=== PATIENT | female | born 1955 | race Caucasian/White ===

== ENCOUNTER → 2016-11-03 | Outpatient (CLI) | payer BC, MEDICARE ==
[~2016-11-03] MED LIST: ASPI81CH32 PO; ATEN50TA2 PO; FERR325T3 PO; FURO40TA2 PO; HYDR-4266 PO; HYDR25TAB PO; ISOVUE-370 76% 100ML VIAL (Q9967) As Ordered ONE; PANT40TA2 PO; PRED20TA PO; TRAZ50TA4 PO; tylenol PO
--- NOTE | 2016-11-03 10:53 | REP ---
CT study of the abdomen without and with IV contrast: Without oral contrast: Three-phase study with delayed images. History: Renal cyst. Comparison renal sonography is from September 26, 2015. Comparison CT images are from [facility] December 14, 2006. The patient has a history of renal failure on dialysis. CT contrast dose: 100 ml of Isovue [address] findings: Lung bases are clear. Mitral annular calcification is seen. The patient is status post gastric bypass surgery. There are intra-abdominal sutures in association with this. Vascular calcification is seen in a normal caliber aorta. There are two calcific foci in the left kidney compatible with tiny intrarenal calculi versus distal vascular calcification. There is a 1.9 cm low density lesion in the central renal sinus fat of the lower pole of the left kidney consistent with a peripelvic cyst. Post contrast sequences show that this does not enhance. It is visible on the 2006 prior study and is felt to be a benign parapelvic cyst. No other cyst or mass is seen in either kidney. The kidneys enhance symmetrically and appear morphologically intact. The left kidney measures 9.9 cm in length and the right kidney measures 10.0 cm in length. Singular nonstenotic renal arteries are seen both of which branch promptly. No adrenal mass lesion is seen. No pancreatic abnormality is observed. There is a descending duodenal diverticulum. No focal hepatic or splenic lesion is seen. Delayed images show no filling defect in the collecting system on either side. There is no evidence of hydronephrosis. Impression: 1.9 cm parapelvic cyst lower pole left kidney. Two tiny 1 mm intrarenal calculi in the left kidney. No hydronephrosis seen. Vascular calcification noted. The patient status post gastric bypass surgery. Signed by Yohan Marcos MD 11/03/2016 06:33 P
== END ==
LOC: M RAD 09:02
PROVIDERS: ATTEND Nurse Practitioner Women's Health
DX: N28.1 Cyst of kidney, acquired (principal); N20.0 Calculus of kidney; Z98.84 Bariatric surgery status
CPT/HCPCS: 74170; Q9967

== ENCOUNTER 2017-04-29 15:29 | Emergency (ER) | payer MEDICARE, MEDICAID ==
[~2017-04-29] VITALS: Ht 167.6 cm; Wt 60.8 kg
[~2017-04-29 15:29] MED LIST changes: -CIPR-249 PO; -LOSA50TA20 PO; -RENATAB5 PO; -RENV2TAB PO; -VITA200016 PO
[2017-04-29] MEDS ORDERED: VITA200016 PO (15:42)
[2017-04-29] MEDS ORDERED: RENV2TAB PO (15:42)
[2017-04-29] MEDS ORDERED: RENATAB5 PO (15:42)
[2017-04-29] MEDS ORDERED: LOSA50TA20 PO (15:42)
[2017-04-29] MEDS ORDERED: ACETAMINOPHEN 325 MG TAB PO ONE (16:30)
[2017-04-29 16:55] LABS: MICROSCOPIC INDICATED? MAN YES (NO)
[2017-04-29 16:58] LABS: BACTERIA, URINE LARGE AMOUNT; HYALINE CAST, URINE NONE SEEN /lpf (0-1); MICROSCOPIC EXAM PERFORMED; RBC, URINE TNTC /hpf (0-3); SQUAMOUS EPITHELIAL CELL URINE SMALL AMOUNT /hpf (SMALL AMT); WBC, URINE 15-20 /hpf (0-3)
[2017-04-29 17:06] LABS: BASO # 0.1 K/mm3 (0.0-0.2); BASO % 0.9 % (0.0-1.0); EOS # 0.1 K/mm3 (0.0-0.50); LARGE UNSTAINED CELL # 0.2 K/mm3 (0.0-0.4); LARGE UNSTAINED CELL % 3.3 % (0.0-4.0); LYMPH # 0.8 K/mm3 (1.5-4.5); LYMPH % 13.2 % (24.0-44.0); MEAN CORPUSCULAR HEMOGLOBIN 31.8 pg (27.0-33.0); MEAN CORPUSCULAR HGB CONC 32.6 g/dl (32.0-36.5); MEAN CORPUSCULAR VOLUME 97.6 fl (80.0-96.0); MONO # 0.5 K/mm3 (0.0-0.8); NEUTROPHILS # 4.4 K/mm3 (1.8-7.7); NEUTROPHILS % 73.6 % (36.0-66.0); PLATELET COUNT, AUTOMATED 344 k/mm3 (150-450); RED CELL DISTRIBUTION WIDTH 14.2 % (11.5-14.5)
[2017-04-29 17:25] LABS: ALBUMIN 3.8 GM/DL (3.2-5.2); ALBUMIN/GLOBULIN RATIO 1.06 (1.00-1.93); BILIRUBIN,DIRECT 0.1 MG/DL (0.0-0.2); BILIRUBIN,TOTAL 0.3 MG/DL (0.2-1.0); CALCIUM LEVEL 8.7 MG/DL (8.8-10.2); CREATININE FOR GFR 4.52 MG/DL (0.55-1.02); GLOMERULAR FILTRATION RATE 10.5 (>45); TOTAL PROTEIN 7.4 GM/DL (6.4-8.2)
[2017-04-29] MEDS ORDERED: cefTRIAXone SOD 2 GM in D5W MINI-BAG PLUS 50 ML IV ONE (17:30)
[2017-04-29 17:33] LABS: POTASSIUM SERUM 2.8 MEQ/L (3.5-5.1)
[2017-04-29] MEDS ORDERED: CIPR-249 PO (18:06)
[2017-04-29] MEDS ORDERED: CIPROFLOXACIN 500 MG TAB PO ONE (18:15)
[2017-04-29 18:21] VITALS: BP 100/88
== END 2017-04-29 18:23 | disposition home or self-care (01) ==
LOC: M ED 15:29
DX: N39.0 Urinary tract infection, site not specified (principal); R50.9 Fever, unspecified; I25.10 Atherosclerotic heart disease of native coronary artery without angina pectoris; N18.9 Chronic kidney disease, unspecified; K21.9 Gastro-esophageal reflux disease without esophagitis; I10 Essential (primary) hypertension; Z95.5 Presence of coronary angioplasty implant and graft; Z98.84 Bariatric surgery status; Z79.82 Long term (current) use of aspirin; Z79.899 Other long term (current) drug therapy
CPT/HCPCS: 36415; 80048; 80076; 81000; 83605; 85025; 87040; 87088; 87186; 96365; 99284; J0696

== ENCOUNTER → 2017-04-29 | Outpatient (REF) | payer MEDICARE, BC ==
[~2017-04-29] MED LIST changes: +CIPR-249 PO; +HYDR-3910 PO; -HYDR-4266 PO; -ISOVUE-370 76% 100ML VIAL (Q9967) As Ordered ONE; +LOSA50TA20 PO; +RENATAB5 PO; +RENV2TAB PO; +TRAZ50TA11 PO; -TRAZ50TA4 PO; +VITA200016 PO
== END ==
LOC: M LAB REF 16:09
PROVIDERS: ATTEND Physician Assistant
DX: R30.0 Dysuria (principal)

== ENCOUNTER 2017-07-08 21:13 | Emergency (ER) | payer OTHER, MEDICARE ==
[~2017-07-08] VITALS: Ht 167.6 cm; Wt 63.6 kg
[~2017-07-08 21:13] MED LIST changes: +CIPR-249 PO; +LOSA50TA20 PO; +RENATAB5 PO; +RENV2TAB PO; +VITA200016 PO
[2017-07-08] MEDS ORDERED: ACETAMINOPHEN TAB 650MG DOSE (2X325MG) PO ONE (21:45)
[2017-07-08 23:10] VITALS: BP 124/58
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
--- NOTE | 2017-07-10 10:21 | ED PDOC ---
Post-Departure Follow-Up radiology report faxed to Padmini Currie MD Jul 10, 2017 10:21
== END 2017-07-08 23:18 | disposition home or self-care (01) ==
LOC: M ED 21:13
DX: S33.5XXA Sprain of ligaments of lumbar spine, initial encounter (principal); S23.3XXA Sprain of ligaments of thoracic spine, initial encounter; V43.62XA Car passenger injured in collision with other type car in traffic accident, initial encounter; Y92.410 Unspecified street and highway as the place of occurrence of the external cause; Y93.9 Activity, unspecified; Y99.9 Unspecified external cause status; Z94.0 Kidney transplant status; Z96.0 Presence of urogenital implants; E27.9 Disorder of adrenal gland, unspecified; K59.00 Constipation, unspecified; M51.34 Other intervertebral disc degeneration, thoracic region; I10 Essential (primary) hypertension; N18.9 Chronic kidney disease, unspecified; Z95.5 Presence of coronary angioplasty implant and graft; Z98.84 Bariatric surgery status; Z87.891 Personal history of nicotine dependence; Z79.82 Long term (current) use of aspirin; Z79.899 Other long term (current) drug therapy

== ENCOUNTER → 2023-02-15 | Outpatient (CLI) | payer MEDICARE, MEDICAID ==
[~2023-02-15] MED LIST changes: -ASPI81CH32 PO; +ASPI81CH33 PO; +HYDR-2541 PO; -HYDR25TAB PO; -LOSA50TA20 PO; +LOSA50TA28 PO; +METHACHOLINE KIT INH ONE; -PANT40TA2 PO; +PANT40TA29 PO; +TRAZ-252 PO; -TRAZ50TA11 PO
== END ==
LOC: M CARPUL 08:51
PROVIDERS: ATTEND Internal Medicine Pulmonary Disease
DX: R05.9 Cough, unspecified (principal)
CPT/HCPCS: 94070; 95070; J7674

== ENCOUNTER → 2023-04-14 | Outpatient (CLI) | payer MEDICARE, MEDICAID ==
[~2023-04-14] MED LIST changes: -METHACHOLINE KIT INH ONE
== END ==
LOC: M RAD 08:07
PROVIDERS: ATTEND Internal Medicine Pulmonary Disease
DX: R91.8 Other nonspecific abnormal finding of lung field (principal)